=== PATIENT | male | born 1975 | race American Indian/Alaskan Native ===

== ENCOUNTER 2019-04-22 06:54 | Day surgery (SDC) | payer OTHER ==
[2019-04-22] MEDS ORDERED: ASPIRIN EC 325 MG TAB PO ONE (07:20)
[2019-04-22 07:55] LABS: Basophils # (Auto) 0.1 K/mm3 (0.0-0.1); Basophils % (Auto) 1.2 % (0.0-1.8); Eosinophils # (Auto) 0.2 K/mm3 (0.0-0.4); Eosinophils % (Auto) 3.7 % (0.0-4.3); Hematocrit 47.3 % (35.5-45.6); Hemoglobin 15.7 gm/dl (11.8-15.2); Lymphocytes # (Auto) 2.2 K/mm3 (1.2-5.4); Mean Corpuscular HGB Conc 33 % (32-34); Monocytes # (Auto) 0.8 K/mm3 (0.0-0.8); Monocytes % (Auto) 11.6 % (0.0-7.3); Platelet Count 326 K/mm3 (140-440); Red Blood Count 6.77 M/mm3 (3.65-5.03); Red Cell Distribution Width 14.8 % (13.2-15.2)
[2019-04-22] MEDS ORDERED: SODIUM CHLORIDE 0.9% 500 ML 500 ML IV SCH (08:00)
[2019-04-22 08:05] LABS: INR 1.09 (0.87-1.13)
[2019-04-22 08:06] LABS: BUN/Creatinine Ratio 14; Blood Urea Nitrogen 14 mg/dL (9-20); Calcium 8.9 mg/dL (8.4-10.2); Hemolysis Index 19; Partial Thromboplastin Time 35.9 Sec. (24.2-36.6)
[2019-04-22 08:18] LABS: Mean Corpuscular Volume 70 fl (84-94)
[2019-04-22] MEDS ORDERED: HEPARIN/NS 5000 UNIT/500ML 1,000 ML IR ONE (09:50)
[2019-04-22] MEDS: fentaNYL 100 MCG/2 ML INJ ONE ×3 (10:02→10:41)
[2019-04-22] MEDS: MIDAZOLAM 2 MG/2 ML INJ ONE ×3 (10:02→10:41)
[2019-04-22] MEDS: VERAPAMIL 5 MG/2 ML INJ ONE ×2 (10:03→10:40)
[2019-04-22] MEDS: LIDOCAINE (2%) 20 MG/1 ML VIAL 20 ML MDV INFILTRATI ONE ×2 (10:03→10:37)
[2019-04-22] MEDS: HEPARIN 10,000 UNITS/10 ML VIAL ONE ×2 (10:03→10:40)
[2019-04-22] MEDS: NITROGLYCERIN SYRINGE 3 ML ONE ×2 (10:04→10:40)
--- NOTE | 2019-04-22 11:13 | Discharge Summary ---
Short Stay Discharge Plan Activity: advance as tolerated Weight Bearing Status: Full Weight Bearing Diet: low fat, low cholesterol, low salt Wound: keep clean and dry Special Instructions: no heavy lifting (7 days), other (avoid strenous exercise until further notice) Follow up with: BRIANA NORRIS III, DERRICKMAN HELPER- [Primary Care Provider] - 7 Days FREIDA YORK MD [Staff Physician] - 7 Days Prescriptions: ISOSORBIDE MONOnitrate [Imdur ER] 30 mg PO DAILY #30 tab.er.24h AtorvaSTATin [Lipitor] 40 mg PO QHS #30 tab
[2019-04-22] MEDS ORDERED: SODIUM CHLORIDE 0.9% 1000 ML 1,000 ML IV SCH (11:15)
--- NOTE | 2019-04-22 11:25 | Cardiac Catherization Report ---
CARDIAC CATHETERIZATION REPORT REASON FOR PROCEDURE: The patient is a 43-year-old man with chest pain and unstable angina. He initially presented to us in 08/2018, 7 months ago, with chest pain, at that time, an outpatient thallium stress test was abnormal, and a cardiac catheterization was recommended. The patient, however, refused and was a no-show for the cardiac catheterization. He returned to the office 6-7 months later, complained of recurrent chest pain, and on further discussion, he agreed at this point to proceed with a cardiac catheterization. PROCEDURES: 1. Left heart catheterization. 2. Selective left and right coronary angiography. 3. Left ventricle angiography. 4. Sedation time, start 10:36; end 10:52. DESCRIPTION OF PROCEDURE: The patient was prepped and draped in a sterile fashion after informed consent. The right radial cath site was prepped and draped after a negative Blaine's test. The right radial artery was entered using Seldinger technique, followed by placement of a 6-Japanese hydrophilic sheath. Routine radial cocktail was administered via the sheath. Selective left and right coronary angiography was performed using a #3.5 left Kristin and a #4 right Kristin. A pigtail catheter was used for left ventricle angiography. The catheters were then removed, sheath removed, and hemostasis achieved using a TR band. The patient was returned to the postprocedure unit in stable condition. There were no complications. FINDINGS: HEMODYNAMICS: Left ventricular end-diastolic pressure was 25-29, following coronary angiography. Ascending aortic pressure was 130/84. There was no significant pressure gradient on pullback across the aortic valve. CORONARY ANGIOGRAPHY: The left main coronary artery was angiographically normal. The left anterior descending artery was chronically, completely occluded at its ostium. There was faint collateralization of the mid LAD and its diagonal branches from left to left collaterals and right to left collaterals. The circumflex artery was a larger caliber system, that was essentially free of significant disease. The right coronary artery was also a large caliber system, dominant, and also free of significant disease. Left ventricular systolic function was well preserved, ejection fraction 55%. Notably, there was minimal to no significant regional wall motion abnormalities in the anterior wall and apex. CONCLUSION: 1. 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 2. Otherwise, no significant lesions of the left main and large caliber circumflex and right coronary arteries. 3. Well preserved left ventricular systolic function, ejection fraction 55%. RECOMMENDATION: The patient will be referred for consideration of single vessel coronary artery bypass with a left internal mammary artery graft. JOB# [id number] DENNISE/EDOUARD MONTEIRO
[2019-04-22] MEDS ORDERED: ACETAMINOPHEN 500 MG TAB PO ONE (12:07)
[2019-04-22 14:37] VITALS: BP 136/60
== END 2019-04-22 15:23 | disposition home or self-care (01) ==
LOC: CATHLABREC 06:54
PROVIDERS: ATTEND Internal Medicine Cardiovascular Disease
DX: R07.89 Other chest pain (principal); I25.110 Atherosclerotic heart disease of native coronary artery with unstable angina pectoris; I10 Essential (primary) hypertension; J45.909 Unspecified asthma, uncomplicated; Z80.8 Family history of malignant neoplasm of other organs or systems; Z79.899 Other long term (current) drug therapy; Z98.890 Other specified postprocedural states; Z82.49 Family history of ischemic heart disease and other diseases of the circulatory system
CPT/HCPCS: 36415; 80048; 85025; 85610; 85730; 93005; 93010; 93458; 99156; C1894; J1644; J2250; J3010; J7040; Q9967